=== PATIENT | female | born 1975 | race Caucasian/White ===

== ENCOUNTER → 2017-12-03 08:16 | Outpatient (CLI) | payer MEDICAID, SELFPAY ==
--- NOTE | 2017-12-03 08:24 | BI_ITS ---
MAMMOGRAPHY - BILATERAL SCREENING REASON FOR EXAM: Female, 42 years old. Routine annual screening examination. PERTINENT HISTORY: Sister with breast cancer. Mother with breast cancer. TECHNIQUE: Digital bilateral breast romain (3D mammographic acquisition) in the CC and MLO projections. 2-D mediolateral oblique (MLO) and craniocaudad (CC) views of both breasts were obtained. CAD: Full Field Digital Mammography with Computer Added Detection was performed. COMPARISON: None. Baseline examination. FINDINGS: Breast Composition: The breasts are heterogeneously dense, which may obscure small masses. There are no dominant masses or suspicious calcifications. No other significant abnormalities are identified. BI/SCREENING MAMM (CAD), BILAT IMPRESSION: Negative screening mammogram. Yearly followup mammogram recommended. (A) ASSESSMENT CATEGORY: BIRADS Category 1: Negative. A letter regarding these results will be sent to the patient by the facility within 30 days. Approximately 10% of breast cancers are not detected by mammography. A normal mammogram should not delay biopsy of a clinically suspicious abnormality. [id number] Electronically Signed: Geoff Arenas MD at 10:01 EDT Tel [phone], Service support ,
== END ==
PROVIDERS: Family Provider Family Medicine; PCP Family Medicine; Visit Provider Obstetrics & Gynecology
DX: Z12.31 Encounter for screening mammogram for malignant neoplasm of breast (principal)
CPT/HCPCS: 77063; 77067

== ENCOUNTER → 2017-12-15 16:19 | Outpatient (CLI) | payer MEDICAID, SELFPAY ==
[2017-12-15 19:42] LABS: Chlamydia Trachomatis by PCR Negative (Negative); Neisserai gonorrhoeae by PCR Negative (Negative); Probe Check PASS; Sample Adequacy Control PASS; Specimen Processing Control PASS
[2017-12-16 01:34] LABS: Rapid Plasmin Reagin (RPR) NONREACTIVE (NONREACTIVE)
[2017-12-16 09:38] LABS: HIV - WCH Non-Reactive (Nonreactive)
[2017-12-19 11:33] LABS: HEPATITIS B SURFACE AG Negative (Negative); Hep C Antibodies 0.1 s/co ratio (0.0-0.9)
[2017-12-21 13:07] LABS: HPV Reflexed? NOT INDICATED
== END ==
PROVIDERS: Family Provider Family Medicine; PCP Family Medicine; Visit Provider Obstetrics & Gynecology
DX: Z11.3 Encounter for screening for infections with a predominantly sexual mode of transmission (principal); Z12.4 Encounter for screening for malignant neoplasm of cervix
CPT/HCPCS: 36415; 86592; 86703; 86803; 87340; 87491; 87591; 88175; G0145

== ENCOUNTER → 2018-03-14 16:50 | Outpatient (CLI) | payer MEDICAID, SELFPAY ==
[2018-03-14 20:52] LABS: Chlamydia Trachomatis by PCR Negative (Negative); Neisserai gonorrhoeae by PCR Negative (Negative); Probe Check PASS; Sample Adequacy Control PASS; Specimen Processing Control PASS
[2018-03-17 20:07] LABS: HSV 1 By PCR Negative (Negative)
[2018-03-18 10:53] LABS: HSV 2 By PCR Positive (Negative)
== END ==
PROVIDERS: Family Provider Family Medicine; PCP Family Medicine; Referring Provider Obstetrics & Gynecology; Visit Provider Obstetrics & Gynecology
DX: N89.8 Other specified noninflammatory disorders of vagina (principal); Z11.3 Encounter for screening for infections with a predominantly sexual mode of transmission
CPT/HCPCS: 87491; 87529; 87591

== ENCOUNTER → 2018-06-27 18:25 | Outpatient (CLI) | payer MEDICAID, SELFPAY ==
[2018-04-18 15:36] VITALS: BMI 22.7
[2018-06-27 21:29] LABS: Chlamydia Trachomatis by PCR Negative (Negative); Neisserai gonorrhoeae by PCR Negative (Negative); Probe Check PASS; Sample Adequacy Control PASS; Specimen Processing Control PASS
== END ==
PROVIDERS: Family Provider Family Medicine; PCP Family Medicine; Referring Provider Obstetrics & Gynecology; Visit Provider Obstetrics & Gynecology
DX: Z11.3 Encounter for screening for infections with a predominantly sexual mode of transmission (principal)
CPT/HCPCS: 87491; 87591

== ENCOUNTER → 2018-07-28 15:28 | Outpatient (CLI) | payer MEDICAID, SELFPAY ==
[2018-04-18 15:36] VITALS: BMI 22.7
[2018-07-28 17:12] LABS: Absolute Lymphocyte Count 1.48 X10^3/ul (0.83-4.51); Absolute Neutrophil Count 6.3 X10^3/uL (2.0-7.7); Basophil# 0.02 X10^3/uL; Basophil% 0.2 % (0-1); Eosinophil# 0.06 X10^3/uL; Eosinophils% 0.7 % (0-5); Hemoglobin 12.2 g/dl (12.0-15.0); Lymphocyte # 1.48 X10^3/ul (4.0); Lymphocyte % 17.7 % (19-41); Mean Corpuscular Hgb 30.4 pg (27.0-32.0); Mean Corpuscular Volume 92.3 fL (81-99); Mean Platelet Vol. 10.8 fl (6.2-12.0); Monocyte# 0.54 X10^3/uL; Monocyte% 6.4 % (0-10); Neutrophil # 6.27 X10^3/uL (2.7-7.7); Neutrophil % 74.9 % (47-70); Platelet Count 233 K/mm3 (150-450); RBC Distribution Width CV 13.9 % (11.6-14.6); RBC Distribution Width SD 46.1 fl (35.1-43.9); Red Blood Count 4.01 M/mm3 (4.2-5.4); White Blood Count 8.4 K/mm3 (4.4-11.0)
[2018-07-28 17:13] LABS: POSITIVE COUNT NO; POSITIVE DIFFERENTIAL NO; POSITIVE MORPHOLOGY NO
[2018-07-28 17:23] LABS: Amphetamine Urine VISTA NEGATIVE (<1000 ng/mL); Barbiturate Urine VISTA NEGATIVE (< 200 ng/mL); Benzodiazepine Urine VISTA NEGATIVE (< 200 ng/mL); Cocaine Urine VISTA NEGATIVE (< 300 ng/mL); Ecstacy Urine VISTA NEGATIVE (< 500 ng/mL); Methadone Urine VISTA NEGATIVE (< 300 ng/mL); PCP Urine VISTA NEGATIVE (< 25 ng/mL); THC Urine VISTA NEGATIVE (< 50 ng/mL); Vista UDS pH Range 6
[2018-07-28 17:31] LABS: Thyroid Stim Hormone (TSH) 0.47 uIU/mL (0.358-3.74)
[2018-07-28 17:44] LABS: Color, Urine Yellow (Yellow); Glucose, Dipstick Normal (Normal); Ketone-Dipstick Negative (Negative); Leukocyte Esterase-Dipstick 100 /ul (Negative); Nitrite-Dipstick Negative (Negative); Occult Blood-Urine Negative /ul (Negative); Protein-Dipstick Negative (Negative); Urine Bilirubin Dipstick Negative (Negative); Urine Clarity Clear (Clear); Urine Urobilinogen Normal (Normal)
[2018-07-29 08:28] LABS: HIV - WCH Non-Reactive (Nonreactive); Vitamin D,25 Hydroxy 25.8 ng/mL (29.95-100.01)
[2018-07-31 11:08] LABS: HEPATITIS B SURFACE AG Negative (Negative); Hep C Antibodies 0.1 s/co ratio (0.0-0.9)
[2018-08-04 01:30] LABS: Prenatal RPR NONREACTIVE (NONREACTIVE)
== END ==
PROVIDERS: Visit Provider Obstetrics & Gynecology
DX: Z34.81 Encounter for supervision of other normal pregnancy, first trimester (principal)
CPT/HCPCS: 36415; 80307; 81002; 82306; 84443; 85025; 86703; 86762; 86803; 87340

== ENCOUNTER → 2018-11-03 | Outpatient (CLI) | payer MEDICAID, SELFPAY ==
[2018-04-18 15:36] VITALS: BMI 22.7
[2018-11-03 10:44] LABS: Glucose Challenge Gest 1H 50g 135 mg/dL (70-140)
[2018-11-03 10:52] LABS: Hematocrit 29.5 % (37-47); Hemoglobin 9.5 g/dl (12.0-15.0); Mean Corp Hgb Conc 32.2 g/gl (32-36); Mean Corpuscular Volume 89.9 fL (81-99); Mean Platelet Vol. 10.2 fl (6.2-12.0); Platelet Count 235 K/mm3 (150-450); RBC Distribution Width CV 13.6 % (11.6-14.6); RBC Distribution Width SD 44.7 fl (35.1-43.9); Red Blood Count 3.28 M/mm3 (4.2-5.4); White Blood Count 10.6 K/mm3 (4.4-11.0)
[2018-11-03 10:56] LABS: Scan Indicated on CBC? Y/N NO
== END | disposition home or self-care (01) ==
LOC: WOBLAB 09:06
PROVIDERS: Visit Provider Obstetrics & Gynecology
DX: Z34.83 Encounter for supervision of other normal pregnancy, third trimester (principal)
CPT/HCPCS: 36415; 82950; 85027; 86850

== ENCOUNTER 2018-11-12 18:25 | Emergency (ER) | payer MEDICAID, SELFPAY ==
[2018-04-18 15:36] VITALS: BMI 22.7
[2018-11-12 18:25] VITALS: BP 119/74; PULSE 95; RESP 16; TEMP 36.3; O2SAT 96; BMI 27.1
[2018-11-12 18:35] LABS: Mucous, Urine 0 SEEN /hpf (<or=2+); Red Blood Cells-Urine 0 SEEN /hpf (0-5); Squamous Epithelial Cells - UA 0 SEEN /hpf (5-10)
[2018-11-12 18:48] LABS: Color, Urine Yellow (Yellow); Glucose, Dipstick Normal (Normal); Ketone-Dipstick Negative (Negative); Leukocyte Esterase-Dipstick 100 /ul (Negative); Nitrite-Dipstick Negative (Negative); Occult Blood-Urine Negative /ul (Negative); Protein-Dipstick Negative (Negative); Urine Bilirubin Dipstick Negative (Negative); Urine Clarity Sl. Cloudy (Clear); Urine Urobilinogen Normal (Normal); Urine pH 6.5 (5.0 - 8.0)
[2018-11-12 18:50] LABS: Bacteria 1+ /hpf (None Seen); White Blood Cells 0-5 SEEN /hpf (0-5)
--- NOTE | 2018-11-12 18:56 | ED.DCSUM_ITS ---
- ER Visit Summary Date of Service: 11/12/18 Chief Complaint: [Dysuria and frequency] History of Present Illness: The patient is a 43 F [with urinary symptoms that started yesterday. Patient complaining of dysuria and frequency. Patient is 29 weeks . She denies any significant contractions. She is feeling the baby move. She denies any vaginal bleeding. History of some mild back discomfort. Had no vomiting. No fevers.] Physical Examination: [HEENT-PERRLA, EOMI. Cranial nerves II through XII grossly intact. TMs clear. Mucous membranes moist. No adenopathy. Cardiovascular-regular rate and rhythm without murmur or ectopy Lungs-clear to auscultation, chest wall stable without crepitus or subcu emphysema Abdomen-normoactive bowel sounds, soft, nontender, no rebound or rigidity, no peritoneal signs. Gravid uterus that is nontender. Extremities-intact ?4, normal range of motion, normal pulses, atraumatic] Test Results: [Urinalysis obtained showed 100 leukocyte esterase as well as 0-5 WBCs and +1 bacteria. Nitrite negative.] Emergency Department Course and Treatment: Patient was started on Macrobid and Pyridium. Urine culture was sent.] Treatment Plan: [Treat with Macrobid and Pyridium and advised to follow-up with COMPRESSION MOLDING MACHINE SETTER in 3 to 5 days. Patient to return if worsening pain, fever, vomiting, or conditions worsen anyway.] Disposition: [Discharged home in stable condition.] Impression: [Urinary tract infection] This note was generated with vChatter dictation software. It may contain incorrect words, spelling, and punctuation that were not noted in review of the chart prior to signing ED Disposition - Plan for ED Patient: Referrals: NOT,DEFINED [Primary Care Provider] -
--- NOTE | 2018-11-12 18:59 | ED.DEP ---
ED Disposition - Plan for ED Patient: Instructions: Bladder Infection, Female (Adult) Prescriptions: Nitrofurantoin Macrocrystals [Macrobid] 100 mg PO Q12 #14 cap Prescription Printed Phenazopyridine HCl [Pyridium] 200 mg PO TID #10 tab Prescription Printed Referrals: NOT,DEFINED [Primary Care Provider] - Jaimee Balderrama MD [STAFF PHYSICIAN] - 3-5 Days
[2018-11-12] MEDS: Phenazopyridine 95 MG Tablet 190 MG PO (19:02)
[2018-11-12] MEDS: Nitrofurantoin Macrocrystals 100 MG Capsule PO (19:02)
[2018-11-12 19:04] VITALS: RESP 18
== END 2018-11-12 19:05 | disposition home or self-care (01) ==
LOC: ED 19:03
PROVIDERS: Emergency Provider Emergency Medicine; Family Provider Family Medicine; PCP Family Medicine
DX: O23.43 Unspecified infection of urinary tract in pregnancy, third trimester (principal); Z3A.29 29 weeks gestation of pregnancy; Z87.440 Personal history of urinary (tract) infections
CPT/HCPCS: 81001; 87086; 87088; 99283

== ENCOUNTER 2018-12-31 10:14 | Emergency (ER) | payer MEDICAID, SELFPAY ==
[2018-12-31 10:15] VITALS: BP 119/89; PULSE 97; RESP 14; TEMP 35.9; O2SAT 100; BMI 28.2
--- NOTE | 2018-12-31 10:39 | ED.DCSUM_ITS ---
History of Present Illness Chief Complaint: Diarrhea Informant: Patient Onset: Weeks Current Severity: Mild Narrative: Is about 37 weeks , she is G's 4 P3 is uncomplicated to date she indicates she is for about a week to 10 days she has had diarrhea, no vomiting feels she has temperatures to about 100, no urinary symptoms no back pain no vaginal bleeding or discharge no abdominal pain she is followed by Dr. Davis RETURNED ITEM CLERK the diarrhea persisted and she came in today for evaluation No antibiotics no sick contacts no tainted food not prone to diarrhea other is uncomplicated Past Medical History - Allergies and Home Meds Allergies/Adverse Reactions: Allergies latex Allergy (Verified 12/31/18 10:15) Rash Primary Care Physician: Yuan Williamson MD [Primary Care Provider] - Past Medical History: - Smoking Status: Never smoker Review of Systems ROS: - As above none General: Denies: Chills, Fever, Sweats Eyes: Denies: Visual changes - bilaterally, Diplopia ENT: Denies: Rhinorrhea, Sore throat Cardiovascular: Denies: Chest pain, Palpitations Respiratory: Denies: Dyspnea, Cough, Dyspnea on exertion Gastrointestinal: Reports: Diarrhea. Denies: Abdominal pain, Nausea, Vomiting, Melena, Hematochezia Genitourinary: Denies: Dysuria, Hematuria, Frequency Musculoskeletal: Denies: Back pain, Extremity Pain Skin: Denies: Rash, Wounds Neurological: Denies: Headache, Weakness, Numbness Physical Exam Vital Signs/Narrative: Vital Signs Temp Pulse Resp BP Pulse Ox 12/31/18 10:15 96.7 F L 97 14 119/89 H 100 General: Well nourished, Well developed, No Acute Distress Head: Normocephalic, Atraumatic Eyes: Perrl, EOMI ENT: Moist mucous membranes, No rhinorrhea Neck: Supple, Nontender Cardiovascular: Regular rate, Regular rhythm, No murmurs Respiratory: No distress, CTA bilaterally, Chest nontender Abdomen: Soft, Nontender, Normal bowel sounds, - - He is obviously abdomen soft and nontender there is no rebound guarding organomegaly Back: Nontender, Normal Inspection Extremities: Nontender, No edema, - - Her extremities are unremarkable she was concerned about edema but I appreciate no edema to either her upper lower extremities her skin is normal Skin: Normal color, No rash Neurological: Alert, Oriented x3, Cranial nerves II-XII grossly intact, Normal Strength, Normal Sensation Psychological: Normal affect, Normal Mood Diagnostic/Tx/Re-eval - Medical Decision Making The patient looks well her vital signs are unremarkable given all the above and her complaint screening labs are obtained IV fluids stool for analysis if she produces any stool Screening labs are generally unremarkable the UA shows 1+ bacteria no white cells or red cells, no protein, she was unable to provide stool sample, we spoke with Dr. Olvera RETURNED ITEM CLERK on-call for Dr. Harry, did not feel antibiotic's were warranted given the UA and the fact urine culture was pending, agreed the patient can be discharged home to follow-up with the office tomorrow Did all the above with the patient she understood that plan however she indicated that while she was sitting in the emergency room she felt she was having more frequent contractions and she went to go up to the RETURNED ITEM CLERK area to be monitored we spoke with RETURNED ITEM CLERK team she will be taking her directly to be monitored further for contractions Home stable to RETURNED ITEM CLERK triage Impression Final Diarrhea 37 weeks intermittent contractions ED Disposition - Plan for ED Patient: Diagnosis: Diarrhea, Instructions: DIARRHEA, Unk Cause (Adult) Report Pendg Referrals: Yuan Williamson MD [Primary Care Provider] - Additional Instructions: To RETURNED ITEM CLERK triage for further monitoring
[2018-12-31 11:01] LABS: Mucous, Urine 0 SEEN /hpf (<or=2+); Red Blood Cells-Urine 0 SEEN /hpf (0-5)
[2018-12-31 11:02] LABS: Absolute Lymphocyte Count 1.47 X10^3/uL (0.83-4.51); Basophil# 0.02 X10^3/uL; Basophil% 0.2 % (0-1); Eosinophil# 0.03 X10^3/uL; Eosinophils% 0.3 % (0-5); Hematocrit 29.9 % (37-47); Hemoglobin 9.6 g/dL (12.0-15.0); Lymphocyte # 1.47 X10^3/ul (4.0); Lymphocyte % 14.1 % (19-41); Mean Corp Hgb Conc 32.1 g/dL (32-36); Mean Corpuscular Hgb 27.8 pg (27.0-32.0); Mean Corpuscular Volume 86.7 fL (81-99); Mean Platelet Vol. 10.5 fl (6.2-12.0); Monocyte# 0.81 X10^3/uL; Monocyte% 7.8 % (0-10); NRBC Flagged by Analyzer 0 % (0-5); Neutrophil # 7.97 X10^3/uL (2.7-7.7); Neutrophil % 76.7 % (47-70); Platelet Count 201 K/mm3 (150-450); RBC Distribution Width CV 15.3 % (11.6-14.6); RBC Distribution Width SD 47.9 fl (35.1-43.9); Red Blood Count 3.45 M/mm3 (4.2-5.4); White Blood Count 10.4 K/mm3 (4.4-11.0)
[2018-12-31 11:03] LABS: Color, Urine Yellow (Yellow); Glucose, Dipstick Normal (Normal); Ketone-Dipstick 15 mg/dl (Negative); Leukocyte Esterase-Dipstick 500 /ul (Negative); Nitrite-Dipstick Negative (Negative); Occult Blood-Urine Negative /ul (Negative); Protein-Dipstick Negative (Negative); Urine Bilirubin Dipstick Negative (Negative); Urine Clarity Sl. Cloudy (Clear); Urine Urobilinogen Normal (Normal)
[2018-12-31 11:09] LABS: Bacteria 1+ /hpf (None Seen); Squamous Epithelial Cells - UA 0-5 SEEN /hpf (5-10); White Blood Cells 0-5 SEEN /hpf (0-5)
[2018-12-31 11:23] LABS: AST(SGOT) 19 U/L (15-37); Alanine Aminotransfer ALT/SGPT 14 U/L (13-56); Albumin, Serum 2.6 g/dL (3.2-5.0); Alkaline Phosphatase 183 U/L (45-117); Bilirubin, Direct 0.12 mg/dL (0.00-0.30); Globulin 4.1 g/dL (2.2-4.2); Protein, Total 6.7 g/dL (6.4-8.2)
[2018-12-31 11:24] LABS: Lipase 215 U/L (73-393)
[2018-12-31 12:05] LABS: Anion Gap 11 (5-15); BUN 5 mg/dL (7-18); BUN/Creat Ratio 9.9 RATIO (10-20); Calcium,Total 8.2 mg/dL (8.5-10.1); Chloride 110 mmol/L (98-107); Creatinine, Serum 0.51 mg/dL (0.55-1.02); EST Glomerular Filtration Rate 142 mL/min (>60); Est Glom Filt Rate - Afr Amer 171 mL/min (>60); Estimated Creatinine Clearance 146.44 ml/min; Glucose 76 mg/dL (74-106); Potassium 3.8 mmol/L (3.5-5.1); Sodium Level 141 mmol/L (136-145)
[2018-12-31 12:49] VITALS: BP 120/89; PULSE 76; RESP 16; O2SAT 98
== END 2018-12-31 12:50 | disposition home or self-care (01) ==
LOC: ED 11:10
PROVIDERS: Emergency Provider Emergency Medicine; Family Provider Family Medicine; PCP Family Medicine
DX: O99.89 Other specified diseases and conditions complicating pregnancy, childbirth and the puerperium (principal); R19.7 Diarrhea, unspecified; Z3A.37 37 weeks gestation of pregnancy
CPT/HCPCS: 80048; 80076; 81001; 83690; 85025; 87086; 96360; J7040; A4216

== ENCOUNTER 2018-12-31 13:00 | Outpatient (CLI) | payer MEDICAID, SELFPAY ==
[2018-12-31 10:15] VITALS: BMI 28.2
[2018-12-31 13:40] VITALS: BMI 28.2
[2018-12-31] MEDS: Lactated Ringers 1,000 ML 999 ML IV (13:58)
--- NOTE | 2019-01-02 06:12 | OB.TRI.NOTE ---
History of Present Illness Date of Service: 12/31/18 Was patient seen by the physician?: No Reason For Visit: R/O LABOR Date of Service: 12/31/18 Final KETURAH: 01/24/19 Final KETURAH Source: US <20 weeks Gestational age: 36 Weeks and 4 Days History of Present Illness: 36+ week intrauterine presents with some contractions. Also complaining of contractions and looser stools recently. Allergies latex Allergy (Verified 12/31/18 10:15) Rash - Pertinent Past Medical History Medical History: Past Medical History (Last Reviewed 04/18/18 @ 15:29 by Jaimee Fraire) Asthma Back pain Chest pain Difficulty balancing Fatigue Knee pain Limb weakness Severe headache Shoulder pain Surgical History: Past Surgical History (Last Reviewed 04/18/18 @ 15:29 by Jaimee Fraire) Hx of appendectomy NST - FHR Rate Baby A NST Reactive:: Yes FHR Category:: Category I Impression/Plan 36+ week intrauterine with transient contractions. No cervical change after observation. Labor instructions given. Otherwise routine follow-up in office.
== END 2018-12-31 15:10 | disposition home or self-care (01) ==
LOC: WPOUT 13:28 → WP 13:29
PROVIDERS: Family Provider Family Medicine; PCP Family Medicine; Visit Provider Obstetrics & Gynecology
DX: O60.03 Preterm labor without delivery, third trimester (principal); O99.89 Other specified diseases and conditions complicating pregnancy, childbirth and the puerperium; R19.7 Diarrhea, unspecified; Z3A.36 36 weeks gestation of pregnancy
CPT/HCPCS: 96361; 59025; 59050; 80048; 80076; 81001; 83690; 85025; 87086; 96360; 99218; 99283; J7040; J7120; A4216; G0378

== ENCOUNTER → 2019-01-03 | Outpatient (CLI) | payer MEDICAID, SELFPAY ==
[2018-12-31 13:40] VITALS: BMI 28.2
== END | disposition home or self-care (01) ==
PROVIDERS: Family Provider Family Medicine; PCP Family Medicine; Referring Provider Obstetrics & Gynecology; Visit Provider Obstetrics & Gynecology
DX: Z36.85 Encounter for antenatal screening for Streptococcus B (principal)
CPT/HCPCS: 87081

== ENCOUNTER → 2019-01-11 | Outpatient (CLI) | payer MEDICAID, SELFPAY ==
[2018-12-31 13:40] VITALS: BMI 28.2
== END | disposition home or self-care (01) ==
LOC: LABSPEC 15:21
PROVIDERS: Visit Provider Obstetrics & Gynecology
DX: R19.7 Diarrhea, unspecified (principal)
CPT/HCPCS: 87493; 87506

== ENCOUNTER 2019-01-13 03:30 | Outpatient (CLI) | payer MEDICAID, SELFPAY ==
[2019-01-13 04:07] VITALS: BMI 28.4
--- NOTE | 2019-01-14 07:10 | OB.TRI.NOTE ---
History of Present Illness Date of Service: 01/13/19 Was patient seen by the physician?: No Reason For Visit: Rule out labor Date of Service: 01/13/19 Final KETURAH: 01/24/19 Final KETURAH Source: US <20 weeks Gestational age: 38 Weeks and 3 Days History of Present Illness: 38+ week presents with some contractions. Concerned that she may be in labor. Good movement has been noted by the patient she denies any vaginal bleeding. Allergies latex Allergy (Verified 01/13/19 04:11) Rash - Pertinent Past Medical History Medical History: Past Medical History (Last Reviewed 04/18/18 @ 15:29 by Jaimee Fraire) Asthma Back pain Chest pain Difficulty balancing Fatigue Knee pain Limb weakness Severe headache Shoulder pain Surgical History: Past Surgical History (Last Reviewed 04/18/18 @ 15:29 by Jaimee Fraire) Hx of appendectomy NST - FHR Rate Baby A NST Reactive:: Yes FHR Category:: Category I Impression/Plan 38+ week intrauterine with false labor. No change in cervix after monitoring for more than an hour. Reactive heart tones. Will release to home with routine labor instructions.
== END 2019-01-13 05:40 | disposition home or self-care (01) ==
LOC: WPOUT 04:02 → WP 04:03
PROVIDERS: Referring Provider Obstetrics & Gynecology; Visit Provider Obstetrics & Gynecology
DX: O47.1 False labor at or after 37 completed weeks of gestation (principal); Z3A.38 38 weeks gestation of pregnancy
CPT/HCPCS: 59025; 59050; 99218; G0378

== ENCOUNTER 2019-01-18 06:50 | Inpatient (IN) | payer MEDICAID, SELFPAY ==
--- NOTE | 2019-01-18 07:17 | PCM.HPOB.BLA ---
History and Physical Date of Admission: 01/18/19 OB HISTORY AND PHYSICAL EXAMINATION History of this : 43 yo female Ab1 with EDC 01/24/2019 by Ultrasound, presents to Labor and Delivery to elective induction of labor. H/O large for gestational age delivery prior. care remarkable for - O negative, Rubella immune GBS negative. 1.) New FOB, he has two children 2.) AMA: AFP and CF testing declined, but Cell free DNA test NEG, WNL., 3.) Former smoker, quit in 2004 4.) Hx of dpression/anxiety 5.) , ALLERGIC to LATEX! 6.) PLANS BILATERAL SALPINGECTOMY as interval procedure. 7.) , HSV 8.) H/O LGA 9+ lb baby 9.) IRRITABLE BOWEL SYNDROME Pertinent Past Medical History: HSV Allergies: Latex Medications: During - azithromycin 500 mg tablet; Zoloft 50 mg tablet; lidocaine 2 % mucosal jelly in applicator; Valtrex 1 gram tablet; Colon Herbal Cleanser capsule; terconazole 0.4 % vaginal cream; Fiber Gummies 2 gram chewable tablet + DHA 28 mg iron- 975 mcg-200 mg combo pack; Zantac 150 mg tablet; ferrous sulfate 325 mg (65 mg iron) tablet; promethazine 12.5 mg tablet Review of Systems: Non-contributory PHYSICAL EXAMINATION General Appearance: 43 yo female in no acute distress Vital Signs: AF, VSS Lungs: regular rate, and rhythm Breasts: deferred Abdomen: gravid Cervix: Presentation: cephalic AGA Movement: present Heart: present 130-140s avg variability. Accels No UCs Impression /Plan: Intrauterine . 39 1/7 wk elective induction. Hx of LGA delivery prior, and also maternal discomfort as reasons for induction. Admit. Plan AROM Pitocin Watch progress, descent, tolerance of labor. Declines AROM until epidural in place. No IV started yet. EFM reassuring. Patient seen and examined at time of H and P nakita Balderrama MD 01/18/19 [id number]
[2019-01-18 07:25] VITALS: BMI 28.5
[2019-01-18] MEDS: Lactated Ringers 500 ML 999 ML IV (08:07)
[2019-01-18 08:11] LABS: Absolute Lymphocyte Count 1.41 X10^3/uL (0.83-4.51); Absolute Neutrophil Count 6.3 X10^3/uL (2.0-7.7); Basophil# 0.03 X10^3/uL; Basophil% 0.4 % (0-1); Eosinophil# 0.02 X10^3/uL; Eosinophils% 0.2 % (0-5); Hematocrit 31.8 % (37-47); Hemoglobin 9.8 g/dL (12.0-15.0); Lymphocyte # 1.41 X10^3/ul (4.0); Lymphocyte % 16.7 % (19-41); Mean Corp Hgb Conc 30.8 g/dL (32-36); Mean Corpuscular Hgb 26.6 pg (27.0-32.0); Mean Corpuscular Volume 86.4 fL (81-99); Mean Platelet Vol. 10.4 fl (6.2-12.0); Monocyte# 0.59 X10^3/uL; NRBC Flagged by Analyzer 0 % (0-5); Neutrophil # 6.33 X10^3/uL (2.7-7.7); Neutrophil % 74.9 % (47-70); Platelet Count 225 K/mm3 (150-450); RBC Distribution Width CV 16.3 % (11.6-14.6); RBC Distribution Width SD 51.4 fl (35.1-43.9); Red Blood Count 3.68 M/mm3 (4.2-5.4); White Blood Count 8.5 K/mm3 (4.4-11.0)
[2019-01-18] MEDS: Lactated Ringers 1,000 ML 50 ML IV (08:41)
[2019-01-18] MEDS: Oxytocin 30 units/NS 500 ml 30 UNITS/500 ML IV.SOLN IV (08:42)
[2019-01-18] MEDS: fentaNYL-bupivacaine (epidural) 100 ML BAG EPIDURAL ×2 (09:26→14:08)
[2019-01-18] MEDS: Ondansetron 4 MG/2 ML Vial IV (10:06)
--- NOTE | 2019-01-18 12:13 | PCM.PN.BLA ---
Progress Note LABOR PROGRESS NOTE -- 39 1/7 wk induction, elective. h/o 9# delivery prior. Uncomfortable. Epidural in place. Comfortable AVSS pitocin @ 6 mIU/min EFM: 130-140s avg variabilty Accels UCs q 2-3 mins CX: 375/-2 AROM clear. IUPC placed. A/P: 39 1/7 wk elective induction. AROM now. Continue pitocin Watch progress, descent.
[2019-01-18] MEDS: Oxytocin 30 units/NS 500 ml 30 UNITS/500 ML IV.SOLN 334 UNITS IV (15:14)
--- NOTE | 2019-01-18 15:23 | PCM.OPRPT ---
Vaginal Delivery Maternal Presentation: Elective Induction 39 1/7 wk h/o LGA induction for this and maternal discomfort Method of Induction: Pitocin, Amniotomy Amniotic Membrane Rupture Type: Artificial Amniotic Fluid Description: Clear Final KETURAH: 01/24/19 Gestational age: 39 Weeks and 1 Days Date of Procedure: 01/18/19 Pre-Operative Diagnosis: 39 1/7 wk induction Post-Operative Diagnosis: same mild shoulder dystocia Surgery/ Procedure Performed: Spontaneous Vaginal Delivery Type of Anesthesia: Epidural Description of Procedure: of a flores viable male over intact perineum to laceration. Head delivered MADHU. No nuchal cord Shoulders delivered with aide of Audelia's maneuver, maternal expulsive effort, suprapubic pressure. Approx 10 sec with head on perineum. to maternal abdomen spont cry. cord clamped times two and cut. Routine cord blood collected for typing. Ap 8/9 and weight pending. PP exam: second deg posterior vaginal and perineal laceration. Repaired under epidural to intact, hemostatic. Placenta delivered by spont expulsion, expression 3V normal appearing, intact, trailing membranes. EBL 250 cc Pt and infant tolerated delivery well. to recovery, stable condition. Ray dolores and needle counts correct times two. Presentation: MADHU Placental Delivery Description: Spontaneous, Expressed Placenta Disposition: [facility] Cord Vessel Description: 3 Vessels Cord Entanglement: None Drain: Raymond to straight drain Estimated Blood Loss: 250 Infant A gender: Male (1 minute): 8 (5 minute): 9 Episiotomy Description: None Laceration: Midline, Perineal Extension/lac, Vaginal Extension/lac, 2nd degree Medications given after delivery: IV Pitocin Complications: None
--- NOTE | 2019-01-18 15:28 | DCINST_ITS ---
Discharge Diet: No Restrictions Discharge Activity: May Shower, May Take a Tub Bath May resume sexual activity in: 4-6 weeks Additional Activity Instructions:: Nothing in the vagina for 4-6 weeks. You may return to work/school in 6 weeks. Additional Instructions: If you experience any of the following, contact your healthcare provider. * Bleeding that soaks a pad every hour for 2 hours * Fever 100.4 or higher * Unrelieved abdominal pain * Problems urinating (including inability to urinate or burning while urinating). * Visual changes * Severe headache * Flu-like symptoms * Pain or redness in one of both of your breasts * Pain, warmth, tenderness or swelling in your legs, especially the calf area * Frequent nausea and vomiting * Symptoms of depression or anxiety If you experience any of the following, call 911 or go to the nearest Emergency Room. * Chest pain * Problems breathing * Seizure activity * Partial or complete paralysis of a body part, slurred speech, weakness or drooping of the face, or a sudden inability to walk or hold your balance Allergies/Adverse Reactions: Allergies latex Allergy (Verified 01/13/19 04:11) Rash Medications to take at Discharge Pnv No.95/Ferrous Fum/Folic AC [ Formula] 1 ea PO DAILY 12/31/18 Valacyclovir HCl [Valtrex] 1,000 mg PO DAILY 12/31/18 Acetaminophen [Tylenol Extra Strength] 500 mg PO Q6H PRN PRN 01/13/19 Bismuth Subsalicylate [Kaopectate] 1 ml PO PRN PRN 01/13/19 DiphenhydrAMINE [Benadryl] 25 mg PO PRN PRN 01/13/19 Pyridoxine HCl [Vitamin B-6] 50 mg PO DAILY 01/13/19 Please Follow Up With: Jaimee Balderrama MD - [phone] When: Call to make an appointment with your doctor in 6 weeks. Primary Care Physician: Care Physician,No Primary [Primary Care Provider] - Test Results: Test results from this visit will be discussed in further detail at your follow-up appointment, if applicable. Proposed Discharge Date: 01/20/19
[2019-01-18] MEDS: Ibuprofen 600 MG Tablet PO ×2 (16:16→22:49)
[2019-01-18] MEDS: Acyclovir 200 MG Capsule 400 MG PO ×2 (16:16→22:49)
[2019-01-18 18:00] VITALS: BP 156/82; PULSE 71; RESP 16; TEMP 37.1
[2019-01-18 19:52] VITALS: BP 125/60; PULSE 82; RESP 17; TEMP 37.1
[2019-01-18] MEDS: Senna/Docusate Sodium 1 Tablet PO (20:00)
[2019-01-18] MEDS: Acetaminophen 500 MG Tablet 1000 MG PO (20:00)
[2019-01-18] MEDS: Dibucaine 30 GM Tube 1 APPLIC TOPICAL (21:25)
[2019-01-19 00:46] VITALS: BP 121/76; PULSE 75; RESP 16; TEMP 36.9
[2019-01-19 04:12] VITALS: BP 117/71; PULSE 82; RESP 18; TEMP 37.1
[2019-01-19] MEDS: Acetaminophen 500 MG Tablet 1000 MG PO ×2 (04:12→12:37)
[2019-01-19] MEDS: Ibuprofen 600 MG Tablet PO ×3 (07:20→19:27)
[2019-01-19 07:48] VITALS: BP 129/78; PULSE 75; RESP 16; TEMP 36.6
--- NOTE | 2019-01-19 08:09 | NURSING ---
0800 spoke with garry lema about pts depression screen score of 22 and that pt wants back on her zoloft and ativan; states that she will see pt and talk to dr khan; social service consult ordered and soledad ortega made aware.
--- NOTE | 2019-01-19 08:40 | PCM.PN.OB ---
Subjective: PPD#1 Shoulder dystocia Baby 10# 8 oz. Doing well. States having back pain, not so much pain in front or with uterus. Nursing. H/O moodiness, depression. Doing well right now but would like to restart on med for this. Objective: Sitting up in bed holding baby. - Physical Exam General: Alert, Oriented x3, Cooperative, No apparent distress HEENT: Atraumatic, EOMI Abdomen: Soft, Non Tender - Fundus firm inferior to umbilicus Neurological: Cranial nerves II-XII grossly intact Psych/Mental Status: Normal Affect Vital Signs Temp Pulse Resp BP 97.8 F 75 16 129/78 H 01/19/19 07:48 01/19/19 07:48 01/19/19 07:48 01/19/19 07:48 Oxygen Delivery Method Room Air Weight: 84.992 kg Body Mass Index (BMI) 28.5 Intake and Output for Last 24 Hours 01/17/19 01/18/19 01/19/19 23:59 23:59 23:59 Intake Total 3879.79 / 3879.79 Output Total 1900 / 1900 Balance 1979.79 / 1979.79 Laboratory Tests Past 24 Hrs 01/18/19 07:50 Blood Type O NEGATIVE Antibody Screen NEGATIVE Medical Necessity - Tobacco Use Smoking Status: Former smoker Assessment/Plan 39 1/7 wk induction for h/o macrosomia LGA Stable pp. Continue pain med prn. 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
[2019-01-19] MEDS: Acyclovir 200 MG Capsule 400 MG PO ×2 (10:32→21:57)
[2019-01-19] MEDS: Sertraline 50 MG Tablet PO (10:32)
[2019-01-19] MEDS: Prenatal Vits Tablet 1 TABLET PO (10:33)
[2019-01-19 12:00] VITALS: BP 124/74; PULSE 81; RESP 16; TEMP 36.7
[2019-01-19 15:21] VITALS: BP 134/75; PULSE 70; RESP 15; TEMP 36.6
[2019-01-19 20:15] VITALS: BP 132/75; PULSE 77; RESP 16; TEMP 36.6; O2SAT 96
[2019-01-19] MEDS: Ondansetron ODT 4 MG Tablet PO (21:16)
[2019-01-20 01:58] VITALS: BP 123/67; PULSE 86; RESP 16; TEMP 36.6; O2SAT 96
[2019-01-20] MEDS: Acetaminophen 500 MG Tablet 1000 MG PO ×2 (02:05→10:54)
[2019-01-20] MEDS: Dibucaine 30 GM Tube 1 APPLIC TOPICAL (02:05)
--- NOTE | 2019-01-20 08:02 | PCM.PN.OB ---
Subjective: Denies heavy bleeding. Angelica has some cramping and low back pain but this is manageable. She is bottlefeeding. Her was transferred to the Special Care Nurs[facility] for respiratory difficulties. Objective: AVSS - Physical Exam General: Alert, Oriented x3, Cooperative, No apparent distress HEENT: Atraumatic, Normocephalic Lungs: Normal air movement Cardiovascular: Regular rate, Regular Rhythm, Normal S1, Normal S2 Abdomen: Soft, Non Tender, Non-Distended, - - fundus firm and nontender Extremities: No edema, No Calf Tenderness Neurological: Neuro grossly intact Psych/Mental Status: Normal Affect, Appropriate, Alert and oriented to time, place, person, mood and affect Vital Signs Temp Pulse Resp BP Pulse Ox 98 F 86 16 123/67 H 96 01/20/19 01:58 01/20/19 01:58 01/20/19 01:58 01/20/19 01:58 01/20/19 01:58 Oxygen Delivery Method Room Air Weight: 84.992 kg Body Mass Index (BMI) 28.5 Intake and Output for Last 24 Hours 01/18/19 01/19/19 01/20/19 23:59 23:59 23:59 Intake Total 3879.79 / 3879.79 Output Total 1900 / 1900 Balance 1979.79 / 1979.79 Medical Necessity - Tobacco Use Smoking Status: Former smoker Assessment/Plan 43yo PPD#2 s/p doing well. -HBsAG neg, Rub immune, HIV neg, RPR nr -O neg - infant A neg -Plan for d/c today - will d/c to hotel if pt desires
[2019-01-20] MEDS: Ibuprofen 600 MG Tablet PO ×2 (08:03→13:56)
[2019-01-20 08:04] VITALS: BP 138/78; PULSE 78; RESP 16; TEMP 36.6; O2SAT 98
[2019-01-20] MEDS: Sertraline 50 MG Tablet PO (09:51)
[2019-01-20] MEDS: Acyclovir 200 MG Capsule 400 MG PO (10:53)
[2019-01-20 13:53] VITALS: BP 139/74; PULSE 78; RESP 18; TEMP 36.6
[2019-01-20] MEDS: Senna/Docusate Sodium 1 Tablet PO (13:53)
== END 2019-01-20 17:45 | disposition home or self-care (01) | DRG 560 ==
PROVIDERS: Admitting Provider Obstetrics & Gynecology; Referring Provider Obstetrics & Gynecology; Visit Provider Obstetrics & Gynecology
DX: O66.0 Obstructed labor due to shoulder dystocia (principal); O70.1 Second degree perineal laceration during delivery; Z3A.39 39 weeks gestation of pregnancy; Z37.0 Single live birth
CPT/HCPCS: 59025; 59050; 85025; 86850; 86900; 86901; 99218; J7120; G0378; J2405

== ENCOUNTER 2019-04-27 10:49 | Day surgery (SDC) | payer MEDICAID, SELFPAY ==
--- NOTE | 2019-04-16 08:16 | PCM.HPOB.BLA ---
History and Physical Date of Admission: 04/27/19 Angelica is here elective surgical sterilization. She signed federal consent for tubal in the office more than 30 days ago. She is bottle feeding her son, delivered in Jan 2019 him. She is wanting L/S bilateral salpingectomy for possible prevention / decreased risk of ovarian cancer. She is going to use condoms until the surgery is completed. NO further fertility desired. EB ALLERGIES: LATEX, Skin irritation MEDICATIONS HISTORY: Current medications prescribed by our practice are: 1. Zoloft 50 mg po daily REVIEW OF SYSTEMS: GENERAL - Denies fever, or chills SKIN - Denies skin changes EYES - Denies visual changes EARS - Denies difficulty hearing NOSE - Denies nasal congestion or bleeding MOUTH - Denies sore throat or difficulty swallowing NECK - Denies pain or swelling RESPIRATORY - Denies shortness of breath or wheezing CARDIOVASCULAR - Denies palpitations or chest pain GASTROINTESTINAL - Denies nausea, vomiting, diarrhea, constipation GENITOURINARY - Denies dysuria, frequency of urination, incontinence of urine MUSCULOSKELETAL - Denies joint or muscle pain NEUROLOGICAL - Denies localized numbness or weakness PSYCHIATRIC - Denies depression or anxiety ENDOCRINE - Denies heat or cold intolerance, weight loss or gain HEMATO-IMMUNOLOGIC - Denies excessive bleeding with cuts PAST HISTORY: Breast/Ovarian/Colon Cancers - great aunt had breast cancer, Mother had Breast Cancer and Sister had Breast Cancer Infections - Chicken pox Illnesses - no serious past illnesses and Asthma Accidents - no injuries of consequence History of Abnormal PAPS - Denies Hospitalizations - Childbirth HSV type 2, 03/2018; SURGICAL HISTORY: 1. Bartholin's cyst lanced in hospital 2. Appendectomy, Jan 2013 3. Call Teeth Removal MENSTRUAL HISTORY: LMP Known?- DefiniteAmount/Duration - 7 days, Regularity - Regular, LMP - 03/10/19, Age Onset Menarche - 14 PAST PREGNANCIES: Total Pregnancies - 5; Full Term Pregnancies - 4; Premature - 0; Abortions, Induced - 0; Abortions, Spontaneous - 1; Ectopics - 0; Multiple Births - 0; Living Children - 4 FAMILY HISTORY: Father - FH: Cancer; Father - FH: Diabetes mellitus type 2; Father - Ischemic heart disease; Mother - Carcinoma of breast; Sister - Carcinoma of breast; Maternal Aunt - Carcinoma of breast; SOCIAL HISTORY: Alcohol Use - denies drinking Smoking - used to smoke but quit and 07/11 Diet - balanced Diet Lifestyle - single Exercise - minimal Seat Belt Use - always Employer - [employer] 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 Illicit Drug Use - denies use of street drugs Sexual Activity - new sexual partner Residence - Lives with SO/FOB Place of - [place], [place] Hours Worked - 40 hours per week Spouse-Sig Other Name - Kamari Hensley Spouse-Sig Other Occupation - Car Sales Spouse-Sig Other Phone No - [phone] Children Name(s) - Noah MilesSanjuanita (EB), Otto Control - wants tubal PHYSICAL EXAMINATION BP- 110/78 Sitting, Right arm, regular cuff Weight- 165.00 lbs Height- 67.00 inch BMI:25.90 CONSTITUTIONAL - NAD, well nourished, and well developed HEENT - Normocephalic, PERRLA, EOMI NECK - no nuchal rigidity EXTREMITIES - No edema or calf tenderness NEUROLOGICAL - Cranial nerves II-XII grossly intact PSYCHIATRIC - A and O to time, place, person, mood and affect ASSESSMENT: 1. Encounter For Surgical sterilization, Sterilization request 2. Other Specified Counseling PLAN BY DIAGNOSIS: 1. Other Specified Counseling Sterilization request. Reviewed methods for bilateral tubal occlusion : Filshie clips, fulguration vs bilateral salpingectomy. Federal consent for tubal signed more than 30 days ago. Plans Laparoscopic Bilateral salpingectomy as scheduled. All questions answered to pt's satisfaction and surgical consent signed and on chart. RTO in 1-2 wk for postoperative incision check.
[2019-04-27] VITALS (7 sets, daily range): BP systolic 110–144; BP diastolic 69–76; PULSE 52–82; RESP 16; TEMP 36.6–37.3; O2SAT 93–100; BMI 25.1
--- NOTE | 2019-04-27 | FALS_PTH ---
PATIENT: JOHN PERERA LOC: [facility] [place]#:[id number] AGE/SX: 44/F ROOM: RE04/27/[address]: Dr. Jaimee Balderrama MD : 1975 BED: DIS: 04/27/2019 SPEC #: [id number] RECD: 04/27/19 15:16 STATUS: MANE REJaime #: [id number] ANUM: 04/27/19 00:[address]: Jaimee Balderrama DEPT: SURGICAL PATHOLOGY RECD BY: Fritz Child ENTERED: 04/30/19 12:08 SP TYPE: FALL TUBES OTHR DR: Dr. Yaun Williamson MD Tissues: Fallopian tube Procedures: Surgery Specimen Level II HEADER OPERATION: Laparoscopic salpingectomy PRE-OP DIAGNOSIS: Sterilization TISSUE SUBMITTED: Bilateral fallopian tubes MICROSCOPIC DIAGNOSIS Bilateral fallopian tubes, salpingectomy: Bilateral fallopian tubes including fimbrial ends, no pathologic diagnosis. Paratubal cyst. SJ:debo 05/01/19 MICROSCOPIC DESCRIPTION Slides are reviewed. GROSS DESCRIPTION Received is one container labeled with the patient's name and designated bilateral fallopian tubes. The specimen consists of bilateral fallopian tubes including fimbrial ends measuring 7 cm in length and 0.4 cm in diameter and 6.5 cm in length and 0.3 cm in diameter. Both fallopian tubes are markedly narrow in the center. Sections reveal unremarkable cut surfaces. The fallopian tubes are not identified as right or left. Also in the container is a paratubal cyst with adjacent fimbrial end measuring 2 x 1 x 0.5 cm. The paratubal cyst measures 0.8 cm in greatest dimension. It contains clear fluid. Manufacturing Design Engineer sections are submitted in two cassettes as follows: 1 - one fallopian tube, 2 - fallopian tube and fimbrial end with paratubal cyst. / KEVIN:debo 04/30/19 TC:5 CPT: 95912 x2
[2019-04-27 11:25] LABS: Internal QC Validated? YES +Cl - CLEAR BKGD; Pregnancy, Urine Negative Negative
[2019-04-27] MEDS: Lactated Ringers 1,000 ML 100 ML IV (11:33)
--- NOTE | 2019-04-27 12:32 | PCM.DC.TUB ---
Discharge Diet: No Restrictions Discharge Activity: May not drive while taking narcotic pain medications., May Shower, May Take a Tub Bath May resume sexual activity in: 1-2 weeks - when comfortable Weight Bearing Status: Weight bearing as tolerated Additional Activity Instructions:: Ambulate often the next week after surgery. Nothing in the vagina for 5 days. Call your doctor if you observe: Fever of 101 or Higher, Inability to have a bowel movement, Calf discomfort, Uncontrolled pain Cleanse incision/area with: Soap & Water, Keep Dressing Clean & Dry Allergies/Adverse Reactions: Allergies latex Allergy (Verified 04/25/19 14:45) Rash Medications to take at Discharge Pnv No.95/Ferrous Fum/Folic AC [ Formula Tablet] 1 ea PO DAILY 12/31/18 Valacyclovir HCl [Valtrex] 1,000 mg PO DAILY 12/31/18 Acetaminophen [Tylenol Extra Strength] 500 mg PO Q6H PRN PRN 01/13/19 Bismuth Subsalicylate [Kaopectate] 1 ml PO PRN PRN 01/13/19 DiphenhydrAMINE [Benadryl] 25 mg PO PRN PRN 01/13/19 Pyridoxine HCl [Vitamin B-6] 50 mg PO DAILY 01/13/19 Sertraline HCl [Zoloft] 50 mg PO DAILY #30 tab 01/20/19 Albuterol Inhaler [Ventolin Hfa (SP)] 1 - 2 puff INHALATION Q4H PRN PRN 04/25/19 Oxycodone [Oxyir] 5 mg PO Q6H PRN PRN 2 Days #5 tablet 04/27/19 The following prescriptions were given: Oxycodone [Oxyir] 5 mg PO Q6H PRN PRN 2 Days #5 tablet PRN Reason: Mod-Severe Pain (4-10) Transmission Status: Sent to [facility] Primary Care Physician: Yuan Williamson MD [Primary Care Provider] - Test Results: Test results from this visit will be discussed in further detail at your follow-up appointment, if applicable. Please Follow Up With: Lacie Beth, SHANI - [phone] When: return to office in 1-2 wk for postop incision check.
--- NOTE | 2019-04-27 13:48 | PCM.OPRPT ---
Report of Operation Date of Procedure: 04/27/19 Pre-Operative Diagnosis: sterilization request Post-Operative Diagnosis: same Surgery/Procedure Performed:: Laparoscopic bilateral salpingectomy Description of Surgical Findings:: Findings: There is a normal-appearing uterus. Fallopian tubes and ovaries are within normal limits. Gross inspection of the bowel, omentum, liver edge are also within normal limits. Photos were taken of the uterus and ovaries after the bilateral partial salpingectomy, and of the right upper quadrant/liver edge. roll reclaimer: Corazon Reddy Type of Anesthesia:: General Anesthesiologist: Rubi Greene CRNA Specimen's removed: Fallopian tubes Drains: Red willett prior to surgery Estimated Blood Loss (mL): 10 Fluids Replaced: LR Description of Procedure: Narrative account: After the risks, benefits, alternatives of the procedure have been reviewed with the patient, informed consent was obtained. The patient was taken to the operating room with an IV running. She was positioned on the operating table in dorsal supine position, where she was given general anesthesia. Once asleep she was repositioned into the dorsal lithotomy position and prepped and draped in the usual sterile fashion. A red Willett catheter was used to drain the bladder prior to initiating the case. A single-toothed tenaculum and Nicole cannula were placed into the cervix to allow manipulation of the cervix and uterus during the case. Attention was then turned to the anterior abdominal wall where 0.5% percent Marcaine with epinephrine was instilled at the suprapubic and infraumbilical skin and at a point midway between the two, in the midline. Skin incisions were then created in the midline at the suprapubic skin, at the infraumbilical skin, and at a point in the midline midway between the two. While maintaining upward traction of the anterior abdominal wall, a Veress needle was inserted through the umbilical incision into the peritoneal cavity. There was free drop of saline, low opening pressure and free flow of CO2 noted. Once the intra-abdominal pressure had reached 12 mmHg the Veress needle was removed and a bladeless 5 mm trocar was inserted through the infraumbilical skin incision into the peritoneal cavity. Correct placement was confirmed using the scope. Under direct visualization then with the patient in Trendelenburg position, a bladeless 5 mm trocar was inserted in through the suprapubic skin incision into the peritoneal cavity and at the mid-lower abdominal incision midway between the infraumbilical and suprapubic trocars. The uterus was anteverted and both ovaries and fallopian tubes were within normal limits. The right fallopian tube was grasped and retracted medially and using a LigaSure device the right fallopian tube was excised from the ovary and mesosalpinx to the level of the uterine fundus. Excellent hemostasis was noted at the excision site. The right fallopian tube was brought through the suprapubic trocar and set aside for later pathology review. In a similar manner the left fallopian tube was grasped and retracted medially and the fallopian tube was excised and removed from the abdominal cavity through the suprapubic trocar. The fallopian tubes were sent to pathology. Excellent hemostasis was noted by visualization of the pelvis, ovaries, and remaining mesosalpinx. Photos were taken of the uterus and bilateral remaining ovaries and of the right upper quadrant and liver edge. At this point the procedure was terminated. The pneumoperitoneum was reduced and the instruments and trocars were removed from the anterior abdominal wall skin. The skin incisions were closed with 4-0 Monocryl in a subcuticular fashion Dermabond and op sites were applied to the skin. The single-toothed tenaculum and Nicole cannula were then removed from the vagina. The patient was returned to dorsal supine position. She was awakened from general anesthesia. She was transferred to the recovery room bed in stable condition after tolerating the procedure well. Sponge, lap, needle and instrument counts were correct x two. Medications given preop and intra-op included: 10 cc of half percent Marcaine with epinephrine used as a subcutaneous block, and Toradol 30 mg IV x1. For a complete listing of medications given preop and intra-op please see the anesthesia record. - Admit VTE Documentation VTE Present on Admission: No VTE Mechan Device Prophylaxis: SCD's VTE Pharm Prophylaxis ordered?: No
[2019-04-27] MEDS: Bupiv/Epi 0.25% 30 ML Vial (13:50)
[2019-04-27] MEDS: Acetaminophen 500 MG Tablet 1000 MG PO (15:54)
[2019-04-27] MEDS: oxyCODONE 5 MG Tablet PO (15:54)
== END 2019-04-27 16:36 | disposition home or self-care (01) ==
LOC: SDC 10:50 → AC 10:51
PROVIDERS: Anesthesiology; Family Provider Family Medicine; PCP Family Medicine; Referring Provider Obstetrics & Gynecology; Visit Provider Obstetrics & Gynecology
PROC: (CPT 58661; principal; 2019-04-27 12:15)
DX: Z30.2 Encounter for sterilization (principal); J45.909 Unspecified asthma, uncomplicated; F32.9 Major depressive disorder, single episode, unspecified; F41.9 Anxiety disorder, unspecified; Z79.899 Other long term (current) drug therapy; Z87.891 Personal history of nicotine dependence
CPT/HCPCS: 58661; 81025; 88302; J7120; J2405

== ENCOUNTER → 2022-10-14 | Outpatient (CLI) | payer OTHER, SELFPAY ==
[2022-10-18 15:08] LABS: HPV APTIMA, High Risk Negative (Negative)
== END | disposition home or self-care (01) ==
LOC: LABSPEC 11:01
PROVIDERS: PCP Internal Medicine; Referring Provider Obstetrics & Gynecology; Visit Provider Obstetrics & Gynecology
DX: Z12.4 Encounter for screening for malignant neoplasm of cervix (principal)
CPT/HCPCS: 87624; 88175; G0145

== ENCOUNTER → 2022-11-01 | Outpatient (CLI) | payer OTHER, SELFPAY ==
--- NOTE | 2022-11-01 08:57 | BI_ITS ---
MAMMOGRAPHY - BILATERAL SCREENING REASON FOR EXAM: Female, 47 years old. Routine annual screening examination. PERTINENT HISTORY: Sister with breast cancer. Mother with breast cancer. Aunt with breast cancer. TECHNIQUE: Digital bilateral breast parish (3D mammographic acquisition) in the CC and MLO projections. 2-D mediolateral oblique (MLO) and craniocaudad (CC) views of both breasts were obtained. CAD: Full Field Digital Mammography with Computer Added Detection was performed. COMPARISON: Comparison is made with prior study dated December 03, 2017. FINDINGS: Breast Composition: The breasts are extremely dense, which lowers the sensitivity of mammography. There are no dominant masses or suspicious calcifications. No other significant abnormalities are identified. There has been no significant change since the prior study. BI/SCRN MAMM (CAD)W/PARISH BILAT IMPRESSION: Stable bilateral screening mammogram. Yearly follow-up mammogram recommended. (A) ASSESSMENT CATEGORY: BIRADS Category 1: Negative. A letter regarding these results will be sent to the patient by the facility within 30 days. Approximately 10% of breast cancers are not detected by mammography. A normal mammogram should not delay biopsy of a clinically suspicious abnormality. [id number] Electronically Signed: Geoff Arenas MD at 10:22 EDT ,
--- NOTE | 2022-11-01 12:57 | US_ITS ---
INDICATION: AUB EXAMINATION: Ultrasound US Pelvis Non OB Complete With Transvaginal Imaging COMPARISON: Abdominal CT 01/15/2013.. FINDINGS: 121 grayscale ultrasound images of the pelvis obtained both transabdominally and transvaginally. In addition dedicated ovarian color Doppler and Doppler waveform interrogation was performed. UTERUS: Uterus measures : 8.7 x 5.5 x 4.4 cm. Endometrial thickness of 1.9 cm. Myometrium is unremarkable. ADNEXA: Flow is documented to bilateral ovaries by color Doppler as well as Doppler waveform. Few small bilateral ovarian follicles measuring up to 1.4 cm on the right. Small amount of cul-de-sac free fluid. US/Pelvic (Non ) IMPRESSION: Unremarkable pelvic ultrasound. Electronically Signed: Jorge Zuleta MD at 6:39 EDT ,
== END | disposition home or self-care (01) ==
PROVIDERS: PCP Internal Medicine; Referring Provider Obstetrics & Gynecology; Visit Provider Obstetrics & Gynecology
DX: Z12.31 Encounter for screening mammogram for malignant neoplasm of breast (principal)
CPT/HCPCS: 76830; 76856; 77063; 77067

== ENCOUNTER → 2022-12-02 | Outpatient (CLI) | payer OTHER, SELFPAY ==
--- NOTE | 2022-12-02 | EMB_PTH ---
PATIENT: JOHN PERERA LOC: [facility] U#:[id number] AGE/SX: 47/F ROOM: RE12/02/[address]: Dr. Karrie Jerez DO : 1975 BED: DIS: 12/02/2022 SPEC #: [id number] RECD: 12/02/22 16:39 STATUS: MANE RIVERA #: [id number] ANUM: 12/02/22 00:[address]: Karrie Jerez DEPT: SURGICAL PATHOLOGY RECD BY: Fritz Child ENTERED: 12/03/22 09:56 SP TYPE: ENDOM BX/C CHRISTINE DR: Dr. Hanny Potter MD Tissues: Endometrium, NOS Procedures: Surgery Specimen Level IV HEADER OPERATION: Endometrial biopsy PRE-OP DIAGNOSIS: Abnormal uterine bleeding TISSUE SUBMITTED: Endometrial lining MICROSCOPIC DIAGNOSIS Endometrial biopsy: Dyssynchronous endometrium consistent with weakly proliferative and weakly secretory endometrium with extensive glandular and stromal breakdown. SJ:debo 12/06/2022 MICROSCOPIC DESCRIPTION Slides are reviewed. GROSS DESCRIPTION Received is one container labeled with the patient's name and not further designated. The specimen consists of multiple fragments of hemorrhagic soft tissue that in aggregate measure 2.5 x 1.0 x 0.1 cm. The specimen is totally submitted in one cassette. / KEVIN:debo 12/03/2022 TC:5 CPT: 00257
== END | disposition home or self-care (01) ==
LOC: LABSPEC 16:42
PROVIDERS: PCP Internal Medicine; Referring Provider Obstetrics & Gynecology; Visit Provider Obstetrics & Gynecology
DX: N93.9 Abnormal uterine and vaginal bleeding, unspecified (principal)
CPT/HCPCS: 88305

== ENCOUNTER 2022-12-14 13:52 | Day surgery (SDC) | payer OTHER, SELFPAY ==
[2022-12-14] VITALS (7 sets, daily range): BP systolic 108–138; BP diastolic 72–90; PULSE 66–77; RESP 16–18; TEMP 36.2–36.8; O2SAT 100; BMI 21.6
--- NOTE | 2022-12-14 10:17 | PCM.HP.BLA ---
History and Physical Date of Admission: 12/14/22 Intake Vital Signs 10/15/2307:59 12/02/2313:06 12/02/2313:06 Height 5 ft 8 in 5 ft 8 in 5 ft 8 in Weight: 143 lb 4 oz BMI 21.7 BP 129/80 H Intake Visit Reasons: EMB needed prior to ablation Interactive Graphic Designer Required: No Is patient in pain?: No Allergies latex Allergy (Verified 12/02/22 14:06) Rash Medications bupropion HCl 150 mg 24 hr tablet, extended release 150 mg PO QAM 10/14/22 [History Confirmed 12/02/22] dextroamphetamine-amphetamine 15 mg tablet (Adderall) 15 mg PO DAILY 10/14/22 [History Confirmed 12/02/22] spironolactone 100 mg tablet 100 mg PO DAILY 10/14/22 [History Confirmed 12/02/22] Post menopausal: No Patient : No : No PFSH PFSH Medical History Asthma Back pain Chest pain Difficulty balancing Fatigue Knee pain Limb weakness Severe headache Shoulder pain Surgical History Hx of appendectomy Status post bilateral salpingectomy Family History Mother Breast cancerSister Breast cancerAunt Breast cancerFather Heart disease Social History Smoking Status: Former smoker alcohol intake: current alcohol intake frequency: a few times a month substance use type: does not use caffeine: Yes what type of physical activity do you participate in: yoga and weight training frequency: 1-2 times per week seatbelt use: always do you feel safe at home: Yes additional social history: 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 Date Name GA/Weeks Outcome Route Bth Weight Gen Labor Lgth Anesthesia Del Locatn Provider FOB Unknown Zander Unknown Miles Unknown AJ Unknown Otto HPI EMB needed prior to ablation Details: JOHN PERERA is a 47 year old who presents for EMB for planned endometrial ablation. ultrasound shows the following: UTERUS: Uterus measures : 8.7 x 5.5 x 4.4 cm. Endometrial thickness of 1.9 cm. Myometrium is unremarkable. ADNEXA: Flow is documented to bilateral ovaries by color Doppler as well as Doppler waveform. Few small bilateral ovarian follicles measuring up to 1.4 cm on the right. Small amount of cul-de-sac free fluid. US/Pelvic (Non ) IMPRESSION: Unremarkable pelvic ultrasound. ROS Const ROS Unobtainable: All systems reviewed & are unremarkable except as noted in H Resp Resp: Reports system reviewed and no additional complaints, except as documented; Denies cough GI GI: Reports as per HPI Psych Psych: Reports system reviewed and no additional complaints, except as documented Exam Const General: cooperative, healthy appearing, comfortable and no acute distress Resp Effort & Inspection: normal respiratory effort Skin General: no rashes or lesions noted Psych Appearance: grossly normal Speech and Movement: speech and movement normal Office Procedures Endometrial Biopsy Endometrial Biopsy Test: Yes declined Consent Signed: Yes Time out checklist: patient tenaculum used: No dilator used: No Details: Cervix prepped with betadine and pipelle inserted into uterus without complication. Specimen obtained and sent to lab for analysis. All instruments removed from vagina without complications. Excellent hemostasis noted. Coding Level of Care Code Off vis,est,level 4 Diagnoses Menorrhagia N92.0 CPT Codes Endometrial Biopsy (74160) Assessment and Plan Assessment and Plan (1) Menorrhagia: Status: Acute Plan: After discussing the patient's diagnosis and treatment plan options, patient wishes to proceed with surgical management. I have discussed with the patient the risks, benefits, and alternatives of the procedure which include but are not limited to risks of anesthesia, bleeding, infection, possible damage to bowel, bladder, or surrounding vasculature which could lead to additional surgery to evaluate any complications. Patient agrees to procedure and wishes to proceed. ACOG/uptodate references given for additional information regarding procedure. as long as emb is benign, plan to proceed with hysteroscopy D&C, curt Orders: Orders Endometrial Biopsy Today N93.9 - Abnormal uterine and vaginal bleeding, unspecified
[2022-12-14] MEDS: Lactated Ringers 1,000 ML 15 ML IV (14:30)
[2022-12-14 15:05] LABS: Absolute Lymphocyte Count 1.63 X10^3/uL (0.83-4.51); Absolute Neutrophil Count 5.8 X10^3/uL (2.0-7.7); Basophil# 0.04 X10^3/uL; Basophil% 0.5 % (0-1); Eosinophil# 0.07 X10^3/uL; Eosinophils% 0.9 % (0-5); Hematocrit 38.5 % (37-47); Hemoglobin 13.2 g/dL (12.0-15.0); Lymphocyte # 1.63 X10^3/ul (0.83-4.51); Lymphocyte % 20.4 % (19-41); Mean Corp Hgb Conc 34.3 g/dL (32-36); Mean Corpuscular Hgb 31.7 pg (27.0-32.0); Mean Corpuscular Volume 92.5 fL (81-99); Mean Platelet Vol. 10.2 fl (6.2-12.0); Monocyte# 0.43 X10^3/uL; Monocyte% 5.4 % (0-10); NRBC Flagged by Analyzer 0 % (0-5); Neutrophil # 5.81 X10^3/uL (2.7-7.7); Neutrophil % 72.5 % (47-70); Platelet Count 251 K/mm3 (150-450); RBC Distribution Width CV 13.3 % (11.6-14.6); RBC Distribution Width SD 45.2 fl (35.1-43.9); Red Blood Count 4.16 M/mm3 (4.2-5.4)
[2022-12-14 15:11] LABS: Internal QC Validated? YES +Cl - CLEAR BKGD; Pregnancy, Urine Negative Negative
--- NOTE | 2022-12-14 15:18 | PCM.DC ---
Discharge Instructions Diet Discharge Diet: No restrictions Activity Discharge Activity: Return to Normal Activity, May Shower and May Take a Tub Bath (after 1 week) May resume sexual activity in: 1-2 weeks Weight Bearing Status: Weight bearing as tolerated Lifting Restrictions: none Dressing / Incision Call your doctor if you observe: Fever of 101 or Higher, Using more than 1 pad per hour, Shortness of breath and Uncontrolled pain Follow Up Care Please Follow Up With: Karrie Jerez DO When: Call [phone] to schedule appointment. Test Results: Test results from this visit will be discussed in further detail at your follow-up appointment, if applicable. Discharge Plan Admission Primary Reason for Your Visit: hysteroscopy, endometrial ablation Attending Provider: Karrie Jerez Primary Care Provider: Hanny Potter Instructions Patient Instructions: Endometrial Ablation Discharge Orders/Prescriptions Prescriptions: New tramadol 50 mg tablet 50 mg PO TID PRN (Reason: pain) Qty: 7 0RF Continued spironolactone 100 mg tablet 50 mg PO DAILY dextroamphetamine-amphetamine [Adderall] 15 mg tablet 15 mg PO DAILY bupropion HCl 150 mg tablet extended release 24 hr 150 mg PO QAM buspirone 5 mg tablet 5 mg PO PRN Patient Comments: take 1 tablet by mouth three times a day Rx Instructions: MAY TAKE UP TO 3 TABS PER DAY Referrals / Follow Up: Hanny Potter MD [Primary Care Provider] - Disposition Disposition (needs filled in before D/C Order can be placed): Home, Self Care
--- NOTE | 2022-12-14 15:25 | EMB_PTH ---
PATIENT: JOHN PERERA LOC: [facility] [place] U#:[id number] AGE/SX: 47/F ROOM: RE12/14/[address]: Dr. Karrie Jerez DO : 1975 BED: DIS: 12/14/2022 SPEC #: [id number] RECD: 12/15/22 07:52 STATUS: MANE RIVERA #: [id number] ANUM: 12/14/22 15:[address]: Karrie Jerez DEPT: SURGICAL PATHOLOGY RECD BY: Amol Mack ENTERED: 12/15/22 10:44 SP TYPE: ENDOM BX/C OTHR DR: Dr. Hanny Potter MD Tissues: Endometrium, NOS Procedures: Surgery Specimen Level IV HEADER OPERATION: Hysteroscopy, D & C Nubia PRE-OP DIAGNOSIS: Menorrhagia TISSUE SUBMITTED: Endometrial curettings MICROSCOPIC DIAGNOSIS Endometrium, curettings: Secretory endometrium. AM:debo 12/16/2022 MICROSCOPIC DESCRIPTION Slides are reviewed. GROSS DESCRIPTION Received in fixative is one container labeled with the patient's name and designated endometrial curettings. The specimen consists of multiple fragments of hemorrhagic soft tissue that in aggregate measure 2.0 x 2.0 x 0.2 cm. The specimen is totally submitted in one cassette. / SJ:debo 12/15/2022 TC:5 CPT: 43341
--- NOTE | 2022-12-14 15:33 | PCM.OPRPT ---
Problems Associated Problem List Diagnoses (1) Menorrhagia: Report of Operation Date of Procedure: 12/14/22 Pre-Operative Diagnosis: menorrhagia Post-Operative Diagnosis: menorrhagia Surgery/Procedure Performed:: hysteroscopy D&C, nubia ablation Surgeon: Karrie Jerez grocery shopper: None Type of Anesthesia: MAC and Topical Anesth Anesthesiologist: Tobias Jung Specimen's removed: endometrial curetting's Drains: none Estimated Blood Loss (mL): 5cc Description of Procedure: Patient was prepped and draped in a normal sterile fashion under MAC anesthesia. A weighted speculum was placed in the vagina and the anterior lip of the cervix was grasped with a single-tooth tenaculum. A paracervical block was placed with 1% lidocaine. Cervix was progressively dilated to allow passage of a 5 mm hysteroscope. The lining was fully visualized and noted to have a normal appearing endometrium with proliferative tissue present . Uterine sounded to 9 cm. Curettage was performed and specimen was sent to pathology. The Nubia device was opened and the cavity length was found to be 5.5 cm. Device was inserted into the uterus and balloon inflated and device deployed. Integrity of the cavity was confirmed and a 2 minute treatment cycle was completed without complication. All instruments were removed from the vagina and excellent hemostasis was noted. Patient was awoken and taken to recovery in stable condition. Admit VTE Documentation VTE Present on Admission: Yes VTE Pharm Prophylaxis ordered?: No Multi Select Codes Urinary/Genital Urinary/Genital CPT Codes: 29164 Nubia/Novasure and 36619 Hysteroscopy,EMC, Polypectomy
[2022-12-14] MEDS: Lidocaine 1% (30 ml sdv) 30 ML Vial (16:06)
== END 2022-12-14 17:33 | disposition home or self-care (01) ==
LOC: SDC 13:56 → AC 13:57
PROVIDERS: Anesthesiology; PCP Internal Medicine; Referring Provider Obstetrics & Gynecology; Visit Provider Obstetrics & Gynecology
PROC: 0U5B8ZZ Destruction of Endometrium, Via Natural or Artificial Opening Endoscopic (ICD-10-PCS; CPT 58558; principal; 2022-12-14 15:10)
DX: N92.0 Excessive and frequent menstruation with regular cycle (principal); F98.8 Other specified behavioral and emotional disorders with onset usually occurring in childhood and adolescence; J45.909 Unspecified asthma, uncomplicated; F41.9 Anxiety disorder, unspecified; Z79.899 Other long term (current) drug therapy; Z87.891 Personal history of nicotine dependence
CPT/HCPCS: 58558; 00952; 81025; 85025; 86850; 86900; 86901; 88305; J7120; J2405

== ENCOUNTER → 2024-11-22 | Outpatient (CLI) | payer OTHER, SELFPAY ==
--- NOTE | 2024-11-22 12:10 | BI_ITS ---
EXAM: SCRN MAMM (CAD)W/PARISH BILAT DATE: 11/22/2024 CLINICAL HISTORY: F, Age 49 y/o , SCREEN FOR BREAST CANCER Sister with breast cancer. Mother with breast cancer. Aunt with breast cancer. TECHNIQUE: SCRN MAMM (CAD)W/PARISH BILAT COMPARISON: Prior exam(s) dated November 01, 2022.. FINDINGS: TISSUE DENSITY: The breasts are extremely dense, which lowers the sensitivity of mammography. Bilateral Breast Mammographic Findings: No significant masses, calcifications or other abnormalities are identified. No suspicious masses, areas of developing architectural distortion, or suspicious calcifications. There has been no significant interval change. BI/SCRN MAMM (CAD)W/PARISH BILAT IMPRESSION: Stable examination. OVERALL FINAL ASSESSMENT BI-RADS 1: NEGATIVE. RECOMMENDATION: Routine annual follow-up in 1 Year A letter with findings and recommendations will be mailed to the patient. Reading Location: [place] [address]
== END | disposition home or self-care (01) ==
LOC: OPBI 12:07
PROVIDERS: PCP Internal Medicine; Referring Provider Obstetrics & Gynecology; Visit Provider Obstetrics & Gynecology
DX: Z12.31 Encounter for screening mammogram for malignant neoplasm of breast (principal)
CPT/HCPCS: 77063; 77067